=== PATIENT | male | born 1975 | race African-American/Black ===

== ENCOUNTER 2017-11-16 05:28 | Emergency (ER) | payer OTHER ==
[~2017-11-16] VITALS: Ht 172.7 cm; Wt 68.0 kg
--- NOTE | 2017-11-16 05:35 | NUR ---
TO BED 10 BIB PARAMEDICS C/O ABDOMINAL PAIN WITH N/V SINCE LAST NIGHT. PT AAOX4 NO ACUTE DISTRESS NOTED, RESP EVEN AND UNLABORED. PLACE PT ON CARDIAC MONITORING, CONTINUOUS POX. ER MD AT BEDSIDE TO EVAL PT WITH ORDERS RECEIVED. WILL CARRY OUT ORDERS.
[2017-11-16] MEDS ORDERED: ONDANSETRON HCL/PF 4 MG/2 ML VIAL ONE ×2 (05:40→05:55)
--- NOTE | 2017-11-16 05:50 | NUR ---
18G RIGHT AC IV STARTED, BLOOD SAMPLE OBTAINED AND SENT TO LAB. MEDICATED PT ORDERED
--- NOTE | 2017-11-16 05:55 | NUR ---
PT STILL VOMITING, ER MD MADE AWARE WITH ORDERS RECEIVED. WILL CARRY OUT ORDERS.
--- NOTE | 2017-11-16 05:58 | NUR ---
PT MEDICATED BY RN PER ER MD ORDER.
[2017-11-16] MEDS ORDERED: ONDANSETRON HCL/PF 4 MG/2 ML VIAL IV ONE (06:00)
[2017-11-16] MEDS ORDERED: IV NS 0.9% 1,000 ML BAG IV ONE (06:00)
[2017-11-16] MEDS ORDERED: ONDANSETRON HCL/PF 4 MG/2 ML VIAL IVP ONE (06:00)
[2017-11-16 06:06] LABS: BASOPHILS # (AUTO) 0.1 /CMM (0.0-0.2); BASOPHILS % (AUTO) 1.4 % (0.0-2.0); EOSINOPHILS % (AUTO) 0.3 % (0.0-6.0); HEMATOCRIT 41 % (39-51); HEMOGLOBIN 13.9 g/dL (13.5-17.5); LYMPHOCYTES # (AUTO) 1.5 /CMM (0.8-4.8); LYMPHOCYTES % (AUTO) 20.4 % (20.0-44.0); MEAN CORPUSCULAR HEMOGLOBIN 33 PG (26.0-33.0); MEAN CORPUSCULAR HGB CONC 34 g/dl (31.0-36.0); MEAN CORPUSCULAR VOLUME 98 fL (80-96); MONOCYTES # (AUTO) 0.5 /CMM (0.1-1.30); MONOCYTES % (AUTO) 6.2 % (2.0-12.0); NEUTROPHILS # (AUTO) 5.4 /CMM (1.8-8.9); NEUTROPHILS % (AUTO) 71.7 % (43.0-81.0); PLATELET COUNT (AUTO) 162 /CMM (150-450); RDW COEFFICIENT OF VARIATION 12.8 (11.5-15.0); RED BLOOD CELL COUNT(AUTO) 4.17 MIL/uL (4.5-6.0); WHITE BLOOD COUNT (AUTO) 7.5 K/uL (4.3-11.0)
[2017-11-16 06:14] LABS: INR 1.07 (0.87-1.13)
--- NOTE | 2017-11-16 06:14 | NUR ---
ER MD MCKENZIE AT BEDSIDE TO RE-EVAL PT.
[2017-11-16] MEDS ORDERED: LORAZEPAM INJ 2 MG/ML VIAL ONE ×2 (06:17→08:14)
[2017-11-16] MEDS ORDERED: HYDROMORPHONE INJ 2 MG/ML DISP.SYRIN ONE ×3 (06:17→08:13)
[2017-11-16 06:18] LABS: ALBUMIN 4.4 g/dL (3.4-5.0); BILIRUBIN,DIRECT 0.6 mg/dL (0.0-0.2); BILIRUBIN,TOTAL 1.4 mg/dL (0.2-1.0); CALCIUM, SERUM 9.7 mg/dL (8.5-10.1); CREATININE 1.2 mg/dL (0.6-1.3); POTASSIUM 3.5 mmol/L (3.5-5.1); TOTAL PROTEIN, SERUM 8.9 g/dL (6.4-8.2)
--- NOTE | 2017-11-16 06:18 | NUR ---
MEDICATED PT ORDERED
[2017-11-16] MEDS ORDERED: LORAZEPAM INJ 2 MG/ML VIAL IV ONE ×2 (06:30→08:00)
[2017-11-16] MEDS ORDERED: HYDROMORPHONE 1 MG/1 ML DISP.SYRIN IV ONE ×3 (06:30→08:00)
[2017-11-16] MEDS ORDERED: IV NS 0.9% 1,000 ML IV ONE (06:30)
--- NOTE | 2017-11-16 06:56 | NUR ---
pt asleep, no acute distress noted, resp even and unlabored. call light within reach. will endorse to am shift.
--- NOTE | 2017-11-16 07:05 | NUR ---
MEDICATED PT ORDERED
--- NOTE | 2017-11-16 08:20 | NUR ---
PATIENT ONCE AGAIN IN SEVERE ABDOMINAL PAIN, MD ORDERED ATIVAN AND DILAUDID. MEDICATION ADMINISTERED, WILL CONTINUE TO MONITOR.
[2017-11-16 08:54] VITALS: BP 124/76
--- NOTE | 2017-11-16 08:58 | NUR ---
IV removed. Catheter intact and site benign. Pressure and 4x4 applied to site. No bleeding noted. Patient discharged to home in stable condition. Written and verbal after care instructions given. Patient verbalizes understanding of instruction.
== END 2017-11-16 08:57 | disposition home or self-care (01) ==
LOC: ER 05:30
DX: R11.2 Nausea with vomiting, unspecified (principal); R10.84 Generalized abdominal pain; Z88.1 Allergy status to other antibiotic agents
CPT/HCPCS: 36415; 80048; 80076; 83690; 85025; 85730; 96361; 96374; 96375; 96376; 99284; A4606; J1170 ×3; J2060 ×2; J2405 ×2; J7030 ×2; Z7610

== ENCOUNTER 2018-01-20 16:03 | Inpatient (IN) | payer MEDICAID ==
[~2018-01-20] VITALS: Ht 180.3 cm; Wt 61.3 kg
--- NOTE | 2018-01-20 16:23 | NUR ---
syncopal event x 2 with intractrable N/V x 2 days.
[2018-01-20] MEDS ORDERED: ONDANSETRON HCL/PF 4 MG/2 ML VIAL ONE ×2 (16:24→16:27)
[2018-01-20] MEDS ORDERED: HYDROMORPHONE 1 MG/1 ML DISP.SYRIN ONE ×2 (16:24→16:28)
[2018-01-20] MEDS ORDERED: HYDROMORPHONE INJ 2 MG/ML DISP.SYRIN IV ONE (16:30)
[2018-01-20] MEDS ORDERED: ONDANSETRON HCL/PF 4 MG/2 ML VIAL IVP ONE (16:30)
[2018-01-20] MEDS ORDERED: IV NS 0.9% 1,000 ML BAG IV ONE ×2 (16:30→19:00)
[2018-01-20 16:49] LABS: RED BLOOD CELL COUNT(AUTO) 4.02 MIL/uL (4.5-6.0); WHITE BLOOD COUNT (AUTO) 4.2 K/uL (4.3-11.0)
[2018-01-20 16:50] LABS: BASOPHILS % (AUTO) 1.4 % (0.0-2.0); HEMATOCRIT 39 % (39-51); HEMOGLOBIN 13.5 g/dL (13.5-17.5); LYMPHOCYTES # (AUTO) 1.1 /CMM (0.8-4.8); LYMPHOCYTES % (AUTO) 26.8 % (20.0-44.0); MEAN CORPUSCULAR HEMOGLOBIN 34 PG (26.0-33.0); MEAN CORPUSCULAR HGB CONC 35 g/dl (31.0-36.0); MEAN CORPUSCULAR VOLUME 97 fL (80-96); MONOCYTES # (AUTO) 0.4 /CMM (0.1-1.30); MONOCYTES % (AUTO) 9.2 % (2.0-12.0); NEUTROPHILS # (AUTO) 2.6 /CMM (1.8-8.9); NEUTROPHILS % (AUTO) 61.6 % (43.0-81.0); PLATELET COUNT (AUTO) 61 /CMM (150-450); RDW COEFFICIENT OF VARIATION 15.8 (11.5-15.0)
[2018-01-20 16:51] LABS: BASOPHILS # (AUTO) 0.1 /CMM (0.0-0.2)
[2018-01-20 16:59] LABS: CALCIUM, SERUM 9.9 mg/dL (8.5-10.1)
[2018-01-20 17:00] LABS: ALBUMIN 4.2 g/dL (3.4-5.0); BILIRUBIN,TOTAL 3.3 mg/dL (0.2-1.0); TOTAL PROTEIN, SERUM 8.4 g/dL (6.4-8.2)
[2018-01-20 17:06] LABS: POTASSIUM 2.6 mmol/L (3.5-5.1)
[2018-01-20] MEDS ORDERED: POTASSIUM CL. PREMIX PERIPHER. 50 ML ONE (17:22)
[2018-01-20] MEDS ORDERED: POTASSIUM CL. PREMIX PERIPHER. 50 ML IV SCH (17:30)
[2018-01-20 17:44] LABS: BAND % (MANUAL) 2 % (0.0-5.0); LYMPHOCYTES % (MANUAL) 18 % (16-48); MONOCYTES % (MANUAL) 8 % (0-11.0); NEUTROPHILS % (MANUAL) 72 (42-76)
--- NOTE | 2018-01-20 18:28 | NUR ---
REPORT GIVEN TO KORY HUSSEIN
[2018-01-20] MEDS ORDERED: LORAZEPAM INJ 2 MG/ML VIAL IV PRN (19:00)
[2018-01-20] MEDS ORDERED: LORAZEPAM INJ 2 MG/ML VIAL ONE (19:07)
[2018-01-20] MEDS ORDERED: IV D5/0.45 NACL 1,000 ML IV PRN (19:11)
--- NOTE | 2018-01-20 19:15 | NUR ---
RN ADMITTING NOTES PT AWAKE AND ALERT, SITTING IN BED. PT IN ROOM AIR, TOLERATING WELL NO SIGNS OF DISTRESS. IV ACCESS ON THE RIGHT AC 18G PATENT AND INTACT. PT WAS SHAKING, HE STATES THAT HE "SHAKES WHEN IN PAIN", GIVEN WARM BLANKET, WILL GIVE PAIN MEDICATION ORDERED. WAITING FOR MD ORDERS. KEPT NPO FOR MRCP, PATIENT TO SIGN CONSENT. SAFETY MEASURES IN PLACED, CALL LIGHT WITHIN REACH. WILL CONTINUE TO MONITOR AND ASSESS.
[2018-01-20] MEDS: MORPHINE SULFATE INJ 4 MG/ML DISP.SYRIN IV PRN ×2 (19:48→22:48)
[2018-01-20 20:00] VITALS: BP 127/79
--- NOTE | 2018-01-20 20:40 | NUR ---
RN NOTES PT WENT DOWN FOR CT SCAN AND MRCP
[2018-01-20] MEDS ORDERED: IOHEXOL-300 100 ML VIAL IV ONE (20:46)
--- NOTE | 2018-01-20 21:15 | NUR ---
RN NOTES PT CAME BACK FROM RADIOLOGY VIA WHEELCHAIR, ALERT ORIENTED, NO SIGNS OF LABORED BREATHING. BACK IN BED, WILL CONTINUE TO GIVE MEDICATION
[2018-01-20] MEDS: METRONIDAZOLE 500MG/ NS 100ML 500 MG in PREMIX 1 EA IV SCH (21:17)
[2018-01-20] MEDS: LEVOFLOXACIN 750 MG /D5W 150ML 750 MG in PREMIX 1 EA IV SCH (22:35)
--- NOTE | 2018-01-20 22:35 | NUR ---
RN NOTES ABX LEVAQUIN ADMINSTERED LATE DUE TO PATIENT GOING TO RADIOLOGY FOR SCANS. ADMINISTERED LEVAQUIN AT [id number]
[2018-01-21] MEDS: MORPHINE SULFATE INJ 4 MG/ML DISP.SYRIN IV PRN (01:53)
[2018-01-21] MEDS: HYDROMORPHONE 1 MG/1 ML DISP.SYRIN IV PRN ×4 (03:56→20:05)
[2018-01-21] MEDS: METRONIDAZOLE 500MG/ NS 100ML 500 MG in PREMIX 1 EA IV SCH ×2 (05:00→15:00)
--- NOTE | 2018-01-21 06:39 | NUR ---
RN CLOSING NOTES PT AWAKE AND ALERT, LAYING BED. PT IN ROOM AIR, TOLERATING WELL NO SIGNS OF SOB. IV ACCESS ON THE RIGHT AC 18G PATENT AND INTACT. PT IS IN PAIN, SHAKING DUE TO PAIN, WILL BE GIVEN PAIN MEDICATION RELIEF. SKIN IS INTACT. SAFETY MEASURES IN PLACED, CALL LIGHT WITHIN REACH. WILL ENDORSED CONTINUITY OF CARE TO THE ONCOMING NURSE.
[2018-01-21 07:00] LABS: CALCIUM, SERUM 8.4 mg/dL (8.5-10.1); CREATININE 0.8 mg/dL (0.6-1.3); PHOSPHORUS 3.8 mg/dL (2.5-4.9); POTASSIUM 3.2 mmol/L (3.5-5.1)
[2018-01-21 07:04] LABS: THYROID STIMULATING HORMONE 1.795 uIU/mL (0.358-3.74)
--- NOTE | 2018-01-21 07:35 | NUR ---
ms rn received on bed, awake,alert oriented x4,complaining of abd pain at this itme, no sob noted, will monitor patient.
[2018-01-21 07:53] LABS: MAGNESIUM 1.2 mg/dL (1.8-2.4)
[2018-01-21 07:54] LABS: HEMATOCRIT 32 % (39-51); HEMOGLOBIN 11.1 g/dL (13.5-17.5); MEAN CORPUSCULAR HEMOGLOBIN 34 PG (26.0-33.0); MEAN CORPUSCULAR HGB CONC 34 g/dl (31.0-36.0); MEAN CORPUSCULAR VOLUME 99 fL (80-96); PLATELET COUNT (AUTO) 52 /CMM (150-450); RDW COEFFICIENT OF VARIATION 15.4 (11.5-15.0); RED BLOOD CELL COUNT(AUTO) 3.29 MIL/uL (4.5-6.0); WHITE BLOOD COUNT (AUTO) 4.8 K/uL (4.3-11.0)
[2018-01-21 07:55] LABS: BASOPHILS % (AUTO) 0.5 % (0.0-2.0); EOSINOPHILS % (AUTO) 0.1 % (0.0-6.0); LYMPHOCYTES % (AUTO) 17.9 % (20.0-44.0); MONOCYTES % (AUTO) 10.4 % (2.0-12.0); NEUTROPHILS % (AUTO) 71.1 % (43.0-81.0)
[2018-01-21 08:00] VITALS: BP_SYST 139; BP_SYST 90; BP_DIAS 59; BP_DIAS 70
[2018-01-21] MEDS: ONDANSETRON HCL/PF 4 MG/2 ML VIAL IVP PRN ×2 (08:10→15:02)
[2018-01-21] MEDS: PANTOPRAZOLE 40 MG VIAL IV SCH (08:15)
--- NOTE | 2018-01-21 08:45 | NUR ---
ms quintero critical lab result of mg -1.2 - called rx, they will replace it.
--- NOTE | 2018-01-21 09:00 | NUR ---
ms ingrid npo at this time, cjherryl aware of lab result, will replace mg and k.
[2018-01-21] MEDS ORDERED: POTASSIUM CHLORIDE 20 MEQ TAB.PRT.SR PO ONE (10:30)
[2018-01-21] MEDS ORDERED: MAGNESIUM OXIDE 400 MG TABLET PO SCH (10:30)
--- NOTE | 2018-01-21 10:50 | NUR ---
ms rn [facility] needs attended.
[2018-01-21 11:12] LABS: LYMPHOCYTES % (MANUAL) 14 % (16-48); MONOCYTES % (MANUAL) 6 % (0-11.0); NEUTROPHILS % (MANUAL) 80 (42-76)
[2018-01-21] MEDS: Magnesium 1GM/D5W 100ML PREMIX 100 ML IV SCH ×2 (12:31→15:02)
[2018-01-21 12:44] LABS: ALBUMIN 3.4 g/dL (3.4-5.0); BILIRUBIN,DIRECT 1.6 mg/dL (0.0-0.2); BILIRUBIN,TOTAL 2.9 mg/dL (0.2-1.0); TOTAL PROTEIN, SERUM 7.1 g/dL (6.4-8.2)
[2018-01-21 16:00] VITALS: BP 142/70
[2018-01-21] MEDS ORDERED: IV LR 1,000 ML IV SCH (16:30)
--- NOTE | 2018-01-21 17:30 | NUR ---
MS RN CAME BACK FROM [facility], WILL BE REPEATED AT 1930.
[2018-01-21] MEDS: FLUCONAZOLE IN NS 100 MG in PREMIX 1 EA IV SCH ×2 (17:50)
[2018-01-21] MEDS ORDERED: PHENYLEPHRINE/SHK LV/MO/PET,WH 30 GM TUBE RC PRN ×2 (18:30)
--- NOTE | 2018-01-21 19:00 | NUR ---
RN OPENING NOTES PT AWAKE AND ALERT IN BED. PT COMPLAINS OF PAIN OF THE ABDOMEN. PT UNABLE TO TAKE PRN MEDICATIONS, PT WILL HAVE ANOTHER MRCP OF THE ABD AT 1930 PER DAY SHIFT NURSE SADIQ. PT HAS A RIGHT FA #22 INTACT AND RUNNING LR@100 ML/HR. SAFETY PRECAUTIONS IN PLACE, WILL CONTINUE TO MONITOR.
--- NOTE | 2018-01-21 19:25 | NUR ---
MS RN ON BED,NO DISTRESS NOTED.
--- NOTE | 2018-01-21 19:30 | NUR ---
RN NOTES PT LEFT THE UNIT FOR IMAGING VIA WHEEL CHAIR.
[2018-01-21] MEDS ORDERED: PIPERACILLIN /TAZOBACTAM 4.5 G in IV D5W 50 ML IV SCH ×3 (19:34)
[2018-01-21 20:00] VITALS: BP 131/77
--- NOTE | 2018-01-21 20:00 | NUR ---
RN NOTES PT ARRIVED BACK ON TO THE UNIT.
[2018-01-21] MEDS: Potassium Chloride 10 MEQ, LIDOCAINE HCL/PF 1% 1 ML in IV NS 0.9% 50 ML IV SCH ×2 (20:06→22:08)
--- NOTE | 2018-01-21 21:45 | NUR ---
RN NOTES PT COMPLAINS OF ITCHINESS, AFTER ADMINISTRATION OF IV POTASSIUM. PAGED SECURED ENTRANCE MONITOR DR ROACH. WILL CONTINUE TO MONITOR AND FOLLOW UP.
--- NOTE | 2018-01-21 22:05 | NUR ---
RN NOTES EXPLAINED TO DR ROACH THAT THE PATIENT FELT ITCHY AFTER ADMINISTRATION OF IV POTASSIUM AND THAT PATIENT WAS REQUESTING SLEEP AID. DR ROACH ORDERED DC 1 L OF LR DC 2ND BAG OF POTASSIUM D5 1/2NS W/20KCL @100ML/HR. ATIVAN 1MG QHS IV BENADRYL 25MG IV ONCE ALL ORDERS REPEATED. WILL CARRY OUT ORDERED.
[2018-01-21] MEDS ORDERED: diphenhydrAMINE HCL 50 MG/ML VIAL IV ONE (22:30)
[2018-01-21] MEDS: LORAZEPAM INJ 2 MG/ML VIAL IV PRN (22:41)
[2018-01-21] MEDS: LEVOFLOXACIN 750 MG /D5W 150ML 750 MG in PREMIX 1 EA IV SCH (22:42)
[2018-01-21] MEDS: IV PREMIX D5 1/2NS + KCL 1,000 ML IV PRN (23:05)
[2018-01-22] MEDS: METRONIDAZOLE 500MG/ NS 100ML 500 MG in PREMIX 1 EA IV SCH ×4 (00:08→23:54)
[2018-01-22] MEDS: HYDROMORPHONE 1 MG/1 ML DISP.SYRIN IV PRN ×3 (00:34→10:14)
[2018-01-22 06:35] LABS: CALCIUM, SERUM 8.7 mg/dL (8.5-10.1); CREATININE 0.8 mg/dL (0.6-1.3)
--- NOTE | 2018-01-22 06:58 | NUR ---
RN CLOSING NOTES PT AWAKE AND ALERT IN BED. PT COMPLAINS OF PAIN OF THE ABDOMEN. ALL PT NEEDS MET OVERNIGHT. PT HAS A RIGHT FA #22 INTACT AND RUNNING D5 1/2 NS W/ 20 MEQ KCL@100 ML/HR. SAFETY PRECAUTIONS IN PLACE, BED IN LOWEST LOCKED POSITION, X2 SIDE RAILS UP AND CALL LIGHT WITHIN REACH. WILL ENDORSE TO DAY SHIFT NURSE FOR CONTINUITY OF CARE.
[2018-01-22 07:16] LABS: BASOPHILS % (AUTO) 0.7 % (0.0-2.0); EOSINOPHILS % (AUTO) 2.9 % (0.0-6.0); HEMATOCRIT 32 % (39-51); HEMOGLOBIN 10.9 g/dL (13.5-17.5); LYMPHOCYTES % (AUTO) 27.9 % (20.0-44.0); MEAN CORPUSCULAR HEMOGLOBIN 34 PG (26.0-33.0); MEAN CORPUSCULAR HGB CONC 34 g/dl (31.0-36.0); MEAN CORPUSCULAR VOLUME 98 fL (80-96); MONOCYTES # (AUTO) 0.4 /CMM (0.1-1.30); MONOCYTES % (AUTO) 9.6 % (2.0-12.0); NEUTROPHILS # (AUTO) 2.2 /CMM (1.8-8.9); NEUTROPHILS % (AUTO) 58.9 % (43.0-81.0); PLATELET COUNT (AUTO) 58 /CMM (150-450); RDW COEFFICIENT OF VARIATION 14.6 (11.5-15.0); RED BLOOD CELL COUNT(AUTO) 3.27 MIL/uL (4.5-6.0); WHITE BLOOD COUNT (AUTO) 3.7 K/uL (4.3-11.0)
--- NOTE | 2018-01-22 07:50 | NUR ---
MS RN RECEIVED ON BED, AWAKE,ALERT,ORIENTED X4,NOT IN ANY FORM OF DISTRESS, RESPIRATIONS EVEN AND UNLABORED,NO SOB NOTED, LUNGS ARE CLEAR,ABDOMEN FIRM AND DISTENDED, NO DISTRESS NOTED, IV SITE INFILTRATED, WILL INSERT A NEW LINE LATER,ALL NEEDS ATTENDED
[2018-01-22 08:00] VITALS: BP 110/67
[2018-01-22 08:08] LABS: ALBUMIN 3.2 g/dL (3.4-5.0); BILIRUBIN,DIRECT 1.4 mg/dL (0.0-0.2); BILIRUBIN,TOTAL 2.5 mg/dL (0.2-1.0); TOTAL PROTEIN, SERUM 6.8 g/dL (6.4-8.2)
[2018-01-22 09:38] LABS: EOSINOPHILS % (MANUAL) 3 % (0-4); LYMPHOCYTES % (MANUAL) 27 % (16-48); MONOCYTES % (MANUAL) 10 % (0-11.0); NEUTROPHILS % (MANUAL) 60 (42-76)
--- NOTE | 2018-01-22 09:45 | NUR ---
MS RN A NEW LINE INSERTED AT RIGHT HAND W/ GOOD VENOUS RETURN,DUE MEDS GIVEN, TOLERATED WELL.
[2018-01-22] MEDS: ONDANSETRON HCL/PF 4 MG/2 ML VIAL IVP PRN (10:13)
[2018-01-22] MEDS: PANTOPRAZOLE 40 MG VIAL IV SCH (10:13)
[2018-01-22] MEDS ORDERED: LORAZEPAM INJ 2 MG/ML VIAL IV PRN (11:00)
--- NOTE | 2018-01-22 11:00 | NUR ---
ms rn was seen by hermilo kenney/ orders made and carriedout.
--- NOTE | 2018-01-22 14:00 | NUR ---
ms rn was seen by gi and surgery, no order at this time but to monitor.
[2018-01-22 16:00] VITALS: BP 136/84
[2018-01-22] MEDS: FLUCONAZOLE IN NS 100 MG in PREMIX 1 EA IV SCH ×2 (16:49)
[2018-01-22] MEDS: Potassium Chloride 10 MEQ, LIDOCAINE HCL/PF 1% 1 ML in IV D5W 50 ML IV SCH ×2 (16:53→18:14)
[2018-01-22] MEDS: IV PREMIX D5 1/2NS + KCL 1,000 ML IV PRN (16:55)
--- NOTE | 2018-01-22 18:29 | NUR ---
ms rn on bed, no distress noted.
--- NOTE | 2018-01-22 19:25 | NUR ---
RN OPENING NOTES RECEIVED PT IN BED, ALERT AND ORIENTED X 4, RECEIVING IVF ORDERED AND IS INFUSING WELL. PATIENT WITH NO SOB NOTED, NO C/O PAIN AT THIS TIME, IN NO DISTRESS. ALL PATIENT'S NEEDS ATTENDED TO, CALL LIGHT WITHIN EASY REACH. PLACED BED IN LOW POSITION AND LOCKED IN PLACE. WILL CONTINUE TO MONITOR.
[2018-01-22] MEDS: LEVOFLOXACIN 750 MG /D5W 150ML 750 MG in PREMIX 1 EA IV SCH (19:30)
[2018-01-22 20:48] VITALS: BP 124/89
[2018-01-22] MEDS: LORAZEPAM INJ 2 MG/ML VIAL IV PRN (20:54)
[2018-01-23] MEDS: HYDROMORPHONE 1 MG/1 ML DISP.SYRIN IV PRN (00:07)
--- NOTE | 2018-01-23 00:07 | NUR ---
RN NOTES PATIENT WITH COMPLAINT OF 8/10 ABDOMINAL PAIN. ADMINISTERED DILAUDID ORDERED. WILL CONTINUE TO MONITOR PT.
--- NOTE | 2018-01-23 03:03 | NUR ---
RN NOTES PATIENT CALLED NURSE AND UPON ANSWERING CALL LIGHT, NOTED PT'S IV PERIPHERAL LINE ON RIGHT HAND TO BE DISLODGED, PER PT, IV LINE WAS DISLODGED AFTER HE WORE HIS SWEATER. PT WITH NO BLEEDING NOTED, NO SOB, BREATHING EVEN AND UNLABORED, NO S/S OF BLEEDING OR INFECTION A SITE. PT VERBALIZED THAT HE WAS OK. INFORMED PT THAT ANOTHER IV LINE NEEDS TO BE INSERTED. PATIENT AGREED BUT APPEARED TO BE RESTLESS AND WALKED OUT OF THE ROOM AND TOWARDS THE NURSE'S STATION. PATIENT THEN VERBALIZED THAT HE IS GOING OUT OF THE HOSPITAL TO OUTBOUND CALL CENTER REPRESENTATIVE HIS TO BRING HER TO THE DOCTOR. RE-ORIENTED PATIENT REGARDING TIME AND PATIENT SAID THAT HE IS AWARE WHAT TIME IT IS. PATIENT IS ALERT AND ORIENTED X 4, EXPLAINED THE RISKS TO PATIENT'S HEALTH IF HE LEAVES AT THIS TIME AND WITHOUT THE DOCTOR'S CLEARANCE. PATIENT VERBALIZED THAT HE UNDERSTANDS AND THAT HE CANNOT BE HELD HERE. EXPLAINED TO PATIENT THAT IT IS NOT GOING TO BE SAFE FOR HIM TO LEAVE THE HOSPITAL AGAINST MEDICAL ADVICE BUT PATIENT CONTINUES TO INSIST THAT HE NEEDS TO LEAVE TO GO AND OUTBOUND CALL CENTER REPRESENTATIVE HIS . RESPECTED PATIENT'S DECISION. PATIENT SIGNED AMA FORM AND DR. DOC ENRIQUEZ AWARE. YRN SAFELY LEFT THE UNIT AMBULATING INDEPENDENTLY.
== END 2018-01-23 03:05 | disposition left against medical advice (07) | DRG 282 ==
LOC: ER 16:04 → TELE 18:26 → MED 01-21 03:58
DX: K85.21 Alcohol induced acute pancreatitis with uninfected necrosis (principal); D69.6 Thrombocytopenia, unspecified; K70.10 Alcoholic hepatitis without ascites; K76.0 Fatty (change of) liver, not elsewhere classified; E87.1 Hypo-osmolality and hyponatremia; E87.6 Hypokalemia; E83.42 Hypomagnesemia; K81.9 Cholecystitis, unspecified; D64.9 Anemia, unspecified; D72.819 Decreased white blood cell count, unspecified; F10.239 Alcohol dependence with withdrawal, unspecified; T51.0X1A Toxic effect of ethanol, accidental (unintentional), initial encounter; Y90.9 Presence of alcohol in blood, level not specified; R74.0 Nonspecific elevation of levels of transaminase and lactic acid dehydrogenase [LDH]; K82.8 Other specified diseases of gallbladder; E44.1 Mild protein-calorie malnutrition; Z68.1 Body mass index [BMI] 19.9 or less, adult
CPT/HCPCS: 36415; 74178; 74181-TC; 76705-TC; 78226; 80048-TC; 80061-TC; 80074; 80076-TC; 82150-TC; 82962-TC; 83690-TC; 83735-TC; 84100-TC; 84443-TC; 85025-TC; 85652-TC; 86140-TC; 87081-TC; 87806; A4216; A4606; A9537; C9113; J1170; J1200; J1450; J1956; J2060; J2270; J2405; J2543; J3475; J3480; J3490; J7030; J7060; Q9967; Z7610

== ENCOUNTER 2018-08-13 12:29 | Inpatient (IN) | payer MEDICAID ==
[~2018-08-13] VITALS: Ht 180.3 cm; Wt 65.9 kg
--- NOTE | 2018-08-13 12:31 | NUR ---
PT LINDA FROM THE STREETS TO ER BED 09. PER REPORT, WITNESSED SEIZURE BY GIRLFRIEND, +ORAL TRAUMA PERSONAL COMPUTER NETWORK ANALYST. POST ICTAL. PLACED ON SEIZURE PRECAUTION. ON MONITOR. WILL CONINUE TO MONITOR.
--- NOTE | 2018-08-13 12:52 | NUR ---
JOSE ANTONIO CHRISTENSEN AT BEDSIDE FOR EVAL.
[2018-08-13] MEDS ORDERED: IV NS 0.9% 1,000 ML BAG IV ONE (13:00)
[2018-08-13] MEDS ORDERED: LEVETIRACETAM (500MG) 1,000 MG in IV NS 0.9% 100 ML IV SCH (13:00)
[2018-08-13] MEDS ORDERED: LORAZEPAM INJ 2 MG/ML VIAL ONE (13:23)
--- NOTE | 2018-08-13 13:25 | NUR ---
PT NOTED ACTIVELY SEIZING, JOSE ANTONIO CHRISTENSEN MADE AWARE. MEDICATED ORDERED.
[2018-08-13] MEDS ORDERED: LORAZEPAM INJ 2 MG/ML VIAL IV ONE (13:30)
[2018-08-13] MEDS ORDERED: LEVETIRACETAM (500MG) 1,000 MG in IV NS 0.9% 100 ML IV ONE (13:30)
--- NOTE | 2018-08-13 13:33 | NUR ---
EPORT GIVEN TO ETHEL HORN. PT AWAITING TRANSFER TO FLOOR.
[2018-08-13 13:36] LABS: BASOPHILS % (AUTO) 0.6 % (0.0-2.0); EOSINOPHILS % (AUTO) 1.9 % (0.0-6.0); HEMATOCRIT 42 % (39-51); HEMOGLOBIN 13.7 g/dL (13.5-17.5); LYMPHOCYTES # (AUTO) 1.6 /CMM (0.8-4.8); LYMPHOCYTES % (AUTO) 23.2 % (20.0-44.0); MEAN CORPUSCULAR HGB CONC 33 g/dl (31.0-36.0); MEAN CORPUSCULAR VOLUME 99 fL (80-96); MONOCYTES % (AUTO) 13.8 % (2.0-12.0); NEUTROPHILS # (AUTO) 4.3 /CMM (1.8-8.9); NEUTROPHILS % (AUTO) 60.5 % (43.0-81.0); PLATELET COUNT (AUTO) 84 /CMM (150-450); RED BLOOD CELL COUNT(AUTO) 4.24 MIL/uL (4.5-6.0)
[2018-08-13 13:49] LABS: ALBUMIN 4.3 g/dL (3.4-5.0); BILIRUBIN,DIRECT 1.7 mg/dL (0.0-0.2); BILIRUBIN,TOTAL 3.8 mg/dL (0.2-1.0); CALCIUM, SERUM 9.4 mg/dL (8.5-10.1); CREATININE 1.4 mg/dL (0.6-1.3); TOTAL PROTEIN, SERUM 8.7 g/dL (6.4-8.2)
[2018-08-13 13:52] LABS: POTASSIUM 2.8 mmol/L (3.5-5.1)
--- NOTE | 2018-08-13 14:26 | NUR ---
PT TO RADIOLOGY FOR HEAD CT SCAN VIA [facility].
[2018-08-13] MEDS ORDERED: POTASSIUM CHLORIDE 20 MEQ TAB.PRT.SR PO ONE (16:00)
[2018-08-13] MEDS: POTASSIUM CL. PREMIX PERIPHER. 50 ML IV SCH ×4 (16:06→20:37)
--- NOTE | 2018-08-13 16:33 | NUR ---
REPORT GIVEN TO ETHEL HORN. PT AWAITING TRANSFER TO FLOOR.
--- NOTE | 2018-08-13 16:33 | NUR ---
Nikolai mcrae in [facility] - 08/13/18 at 1634 by LA REPORT GIVEN TO ETHEL DOSHI PT AWAITING TRANSFER TO [facility].
[2018-08-13 16:40] LABS: EOSINOPHILS % (MANUAL) 2 % (0-4); LYMPHOCYTES % (MANUAL) 31 % (16-48); MONOCYTES % (MANUAL) 9 % (0-11.0); NEUTROPHILS % (MANUAL) 58 (42-76)
[2018-08-13] MEDS ORDERED: Magnesium 1 GM/2 ML VIAL IV ONE (17:30)
[2018-08-13] MEDS ORDERED: Magnesium 1GM/D5W 100ML PREMIX 200 ML IV ONE (17:51)
[2018-08-13 18:15] VITALS: BP 116/76
--- NOTE | 2018-08-13 18:15 | NUR ---
RANGE EXAMINER NOTES ADMITTED PATIENT FROM ER, REPORT GIVEN BY ISMAEL. PATIENT ALERT ORIENTED X 3. NO ACUTE DISTRESS NOTED. VITAL SIGNS STABLE. BREATHING UNLABORED. NO SOB NOTED. IV ACCESS ON RAC G18 RUNNING 2ND BAG OF POTASSIUM CHLORIDE 10MEQ AND NS. IV ACCESS ON LEFT HAND G22 RUNNING 1ST BAG OF MAGNESIUM 1GM. RECEIVED REMAINING 2 BAGS OF POTASSIUM 10 MEQ AND 1 BAG OF MAGNESIUM 1GM. ORIENTED TO THE ROOM. CALL LIGHT WITHIN REACH. SAFETY MEASURES AND SEIZURE PRECAUTION IN PLACE.NEEDS ATTENDED AND ANTICIPATED. WILL CONTINUE TO MONITOR ACCORDINGLY. PLACED ON EMTS ,[place]. WILL ENDORSE TO NIGHT NURSE FOR CONTINUITY OF CARE AND ADMISSION PROCESS.
[2018-08-13] MEDS ORDERED: IV NS 0.9% 1,000 ML IV PRN (18:51)
[2018-08-13] MEDS ORDERED: MAG HYDROX/AL HYDROX/SIMETH 30 ML UDC PO PRN (19:00)
[2018-08-13] MEDS ORDERED: MORPHINE SULFATE INJ 2 MG/ML DISP.SYRIN IV PRN (19:00)
[2018-08-13] MEDS ORDERED: LORAZEPAM INJ 2 MG/ML VIAL IV PRN (19:00)
[2018-08-13] MEDS ORDERED: ONDANSETRON HCL/PF 4 MG/2 ML VIAL IVP PRN (19:00)
[2018-08-13] MEDS ORDERED: MAGNESIUM HYDROXIDE 30 ML UDC PO PRN (19:00)
[2018-08-13] MEDS ORDERED: HYDROCODONE/APAP 5/325MG 1 EACH TABLET PO PRN (19:00)
[2018-08-13] MEDS ORDERED: Z GUARD REMEDY 2 OZ OINT TP PRN (19:00)
[2018-08-13] MEDS ORDERED: ACETAMINOPHEN 325 MG TABLET PO PRN (19:00)
[2018-08-13 20:00] VITALS: BP_SYST 105; BP_SYST 123; BP_DIAS 64; BP_DIAS 74
[2018-08-13] MEDS ORDERED: LEVETIRACETAM (500MG) 500 MG in IV NS 0.9% 100 ML IV SCH (20:00)
[2018-08-13] MEDS: LEVETIRACETAM (500MG) 500 MG in IV NS 0.9% 100 ML IV SCH (21:15)
[2018-08-14] VITALS: BP 96/57
[2018-08-14 04:00] VITALS: BP_SYST 116; BP_SYST 135; BP_DIAS 71; BP_DIAS 76
[2018-08-14] MEDS: IV NS 0.9% 1,000 ML IV PRN ×3 (06:03→23:34)
--- NOTE | 2018-08-14 06:24 | NUR ---
FAMILY ASSISTANT NOTES AWAKE & RESPONSIVE. NOT IN ANY DISTRESS. NO SOB NOTED. DENIES ANY PAIN OR DISCOMFORT AT THIS TIME. ON TELE ST @ 106 WITH IVF INFUSING WELL. MONITORED ACCORDINGLY. CALL LIGHT WITHIN REACH. BED IN LOWEST POSITION. SR UP X 3 WITH BED ALARM ON FOR SAFETY. KEPT ON SZ PREC AAT. WILL ENDORSE TO NEXT SHIFT.
--- NOTE | 2018-08-14 07:30 | NUR ---
PROPERTY VALUER OPENING NOTES Patient remains on room air with no sob. Patient denies pain at this time. Patient's IV was removed by himself accidentally and was changed to a Right forearm 22 gauge. IV flowing well with no obstruction. IVF remains at 150 ml / hour. patient's bed at the lowest setting, call light within reach.
[2018-08-14 07:32] LABS: BASOPHILS % (AUTO) 0.6 % (0.0-2.0); EOSINOPHILS % (AUTO) 2.3 % (0.0-6.0); HEMATOCRIT 33 % (39-51); HEMOGLOBIN 11.3 g/dL (13.5-17.5); LYMPHOCYTES # (AUTO) 1.3 /CMM (0.8-4.8); LYMPHOCYTES % (AUTO) 18.7 % (20.0-44.0); MEAN CORPUSCULAR HGB CONC 34 g/dl (31.0-36.0); MEAN CORPUSCULAR VOLUME 96 fL (80-96); MONOCYTES # (AUTO) 1.1 /CMM (0.1-1.30); MONOCYTES % (AUTO) 15.4 % (2.0-12.0); NEUTROPHILS # (AUTO) 4.3 /CMM (1.8-8.9); PLATELET COUNT (AUTO) 73 /CMM (150-450); RED BLOOD CELL COUNT(AUTO) 3.46 MIL/uL (4.5-6.0); WHITE BLOOD COUNT (AUTO) 6.9 K/uL (4.3-11.0)
[2018-08-14 07:52] LABS: CALCIUM, SERUM 8.4 mg/dL (8.5-10.1); CREATININE 0.7 mg/dL (0.6-1.3); MAGNESIUM 2.1 mg/dL (1.8-2.4); PHOSPHORUS 2.9 mg/dL (2.5-4.9); POTASSIUM 3.1 mmol/L (3.5-5.1)
[2018-08-14 07:54] LABS: THYROID STIMULATING HORMONE 0.783 uIU/mL (0.358-3.74)
[2018-08-14 08:00] VITALS: BP 114/70
[2018-08-14] MEDS: FOLIC ACID 1 MG TABLET PO SCH (08:57)
[2018-08-14] MEDS: PANTOPRAZOLE 40 MG TABLET.DR PO SCH (08:57)
[2018-08-14] MEDS: THIAMINE HCL 100 MG TABLET PO SCH (08:57)
[2018-08-14] MEDS: LEVETIRACETAM (500MG) 500 MG in IV NS 0.9% 100 ML IV SCH (10:41)
[2018-08-14] MEDS: POTASSIUM CHLORIDE 20 MEQ TAB.PRT.SR PO SCH ×2 (10:53→11:00)
[2018-08-14 11:21] LABS: ALBUMIN 3.2 g/dL (3.4-5.0); BILIRUBIN,TOTAL 2.8 mg/dL (0.2-1.0); TOTAL PROTEIN, SERUM 6.7 g/dL (6.4-8.2)
[2018-08-14 16:00] VITALS: BP 116/86
[2018-08-14] MEDS ORDERED: POTASSIUM CHLORIDE 20 MEQ TAB.PRT.SR PO SCH (16:30)
--- NOTE | 2018-08-14 18:47 | NUR ---
RN MS NOTES K DUR due at 1100 not given, I re ordered the medication and gave it at a later time. Pharmacy aware.
--- NOTE | 2018-08-14 18:51 | NUR ---
RN MS CLOSING NOTES Patient remains on room air with no sob noted. Patient remains a/o x4. Patient is ambulatory and has steady gait when he goes to the restroom. Patient denies pain at this time. Keppra is now oral instead of IV per MD order. Patient's right AC forearm #22 with ns @ 150mL/hour flows well with no obstruction. Patient's bed is at the lowest setting with call light within reach. Bedside report will be given to night RN.
[2018-08-14 20:00] VITALS: BP 120/66
[2018-08-14] MEDS: LEVETIRACETAM (250 MG) 250 MG TABLET PO SCH (20:55)
--- NOTE | 2018-08-14 21:28 | NUR ---
Patient lives locally with roommates/friends. He is ambulatory and independent with adl's. His pcp is at [facility]. He plan to return home once discharge Addendum: 08/14/18 at 2128 by COSME AMAYA RN Amended: Links added.
--- NOTE | 2018-08-15 06:12 | NUR ---
MS RN NOTES AWAKE & RESPONSIVE. NOT IN ANY DISTRESS. NO SOB NOTED. DENIES ANY PAIN OR DISCOMFORT AT THIS TIME. WITH IVF INFUSING WELL. MONITORED ACCORDINGLY. CALL LIGHT WITHIN REACH. BED IN LOWEST POSITION. SR UP X 3 WITH BED ALARM ON FOR SAFETY. KEPT ON SZ PREC AAT. WILL ENDORSE TO NEXT SHIFT.
[2018-08-15 07:01] LABS: BASOPHILS % (AUTO) 0.9 % (0.0-2.0); EOSINOPHILS % (AUTO) 5.2 % (0.0-6.0); HEMATOCRIT 31 % (39-51); HEMOGLOBIN 10.3 g/dL (13.5-17.5); LYMPHOCYTES # (AUTO) 1.1 /CMM (0.8-4.8); LYMPHOCYTES % (AUTO) 22.4 % (20.0-44.0); MEAN CORPUSCULAR HGB CONC 34 g/dl (31.0-36.0); MEAN CORPUSCULAR VOLUME 98 fL (80-96); MONOCYTES # (AUTO) 0.7 /CMM (0.1-1.30); MONOCYTES % (AUTO) 13.9 % (2.0-12.0); NEUTROPHILS # (AUTO) 2.8 /CMM (1.8-8.9); NEUTROPHILS % (AUTO) 57.6 % (43.0-81.0); PLATELET COUNT (AUTO) 85 /CMM (150-450); RED BLOOD CELL COUNT(AUTO) 3.15 MIL/uL (4.5-6.0); WHITE BLOOD COUNT (AUTO) 4.9 K/uL (4.3-11.0)
[2018-08-15 07:20] LABS: CALCIUM, SERUM 8.7 mg/dL (8.5-10.1); CREATININE 0.7 mg/dL (0.6-1.3); POTASSIUM 3.3 mmol/L (3.5-5.1)
--- NOTE | 2018-08-15 07:32 | NUR ---
RN MS OPENING NOTES Patient remains on room air, no sob noted. Patient is lying down comfortably in his bed. IVF at 60 ml/hour. flowing with no obstruction noted. Patient's bed is at the lowest setting with call light in place.
[2018-08-15 08:00] VITALS: BP 131/85
[2018-08-15] MEDS: LEVETIRACETAM (250 MG) 250 MG TABLET PO SCH (09:02)
[2018-08-15] MEDS: FOLIC ACID 1 MG TABLET PO SCH (09:02)
[2018-08-15] MEDS: PANTOPRAZOLE 40 MG TABLET.DR PO SCH (09:03)
[2018-08-15] MEDS: THIAMINE HCL 100 MG TABLET PO SCH (09:03)
[2018-08-15] MEDS ORDERED: LEVE250T2 PO (10:46)
[2018-08-15] MEDS ORDERED: POTASSIUM CHLORIDE 20 MEQ TAB.PRT.SR PO SCH (11:00)
--- NOTE | 2018-08-15 12:13 | NUR ---
STONE AND PLATE PREPARER APPRENTICE NOTES Patient discharged on room air, no sob noted. Patient denies pain, he has good gait ambulating. Patient's discharge papers given to him, along with the discharge instructions. Patient also received the original copy of his prescription. Patient's belonging with him, clothes, [place]udson $20 x 10, and cell phone taken home by patient. Patient's IV line d/c'd without any swelling.
== END 2018-08-15 11:45 | disposition home or self-care (01) | DRG 282 ==
LOC: ER 12:35 → TELE 16:07 → MED 08-14 09:52
PROVIDERS: ADMIT Nurse Practitioner Acute Care; ATTEND Nurse Practitioner Acute Care
DX: K85.20 Alcohol induced acute pancreatitis without necrosis or infection (principal); N17.0 Acute kidney failure with tubular necrosis; E83.42 Hypomagnesemia; D64.9 Anemia, unspecified; S01.512A Laceration without foreign body of oral cavity, initial encounter; E87.1 Hypo-osmolality and hyponatremia; F10.239 Alcohol dependence with withdrawal, unspecified; G40.509 Epileptic seizures related to external causes, not intractable, without status epilepticus; E86.1 Hypovolemia; E87.6 Hypokalemia; K76.0 Fatty (change of) liver, not elsewhere classified; Z87.820 Personal history of traumatic brain injury; Z88.0 Allergy status to penicillin; R74.0 Nonspecific elevation of levels of transaminase and lactic acid dehydrogenase [LDH]; Y90.0 Blood alcohol level of less than 20 mg/100 ml; K70.9 Alcoholic liver disease, unspecified; X58.XXXA Exposure to other specified factors, initial encounter; Y93.89 Activity, other specified; Y92.009 Unspecified place in unspecified non-institutional (private) residence as the place of occurrence of the external cause
CPT/HCPCS: 36415; 70450-TC; 71045-TC; 76705-TC; 80048-TC; 80061-TC; 80076-TC; 82962-TC; 83690-TC; 83735-TC; 84100-TC; 84443-TC; 85025-TC; 85610-TC; 87081-TC; G0378; G0480; J1953; J2060; J2270; J3475; J3480; J7030